=== PATIENT | male | born 1980 | race Caucasian/White ===

== ENCOUNTER 2019-03-27 23:16 | Emergency (ER) | payer OTHER ==
[2019-03-28] MEDS ORDERED: IBUPROFEN 800 MG TABLET PO ONE (00:44)
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
--- NOTE | 2019-03-28 00:56 | RADIOLOGY REPORT (SQ) ---
EXAM DESCRIPTION: XR FOREARM 2 VIEWS COMPLETED DATE/TME: 03/28/2019 00:00 CLINICAL HISTORY: 38 years, Male, bone pain COMPARISON: None. NUMBER OF VIEWS: Two TECHNIQUE: Two views of the right forearm LIMITATIONS: None. FINDINGS: No acute fracture or dislocation. No large soft tissue swelling. No radiopaque foreign body. IMPRESSION: No acute fracture or dislocation copyright 2010 [employer]- All Rights Reserved
--- NOTE | 2019-03-28 00:57 | RADIOLOGY REPORT (SQ) ---
EXAM DESCRIPTION: XR HAND 3 OR MORE VIEWS COMPLETED DATE/TME: 03/28/2019 00:00 CLINICAL HISTORY: 38 years, Male, bone pain COMPARISON: None. NUMBER OF VIEWS: Three TECHNIQUE: Three views of the right hand LIMITATIONS: None. FINDINGS: There is no acute fracture or dislocation. The joint spaces are preserved. No large soft tissue swelling. IMPRESSION: No acute fracture or dislocation copyright 2010 [employer]- All Rights Reserved
[2019-03-28 01:17] VITALS: BP 140/96
== END 2019-03-28 01:31 | disposition home or self-care (01) ==
LOC: ER 23:16
DX: S60.511A Abrasion of right hand, initial encounter (principal); M79.631 Pain in right forearm; Y00.XXXA Assault by blunt object, initial encounter; Z88.0 Allergy status to penicillin
CPT/HCPCS: 99283; 73090; 73130; L3908

== ENCOUNTER 2019-09-21 08:57 | Emergency (ER) | payer MEDICAID, OTHER ==
--- NOTE | 2019-09-21 10:24 | ER Document Report ---
HPI - HPI Time Seen by Provider: 09/21/19 10:13 Pain Level: 5 Context: Patient is a 38-year-old male who presents emergency department with a chief complaint of left lower dental pain. Patient reports that about 3 days ago his filling came out of his tooth. Patient reports since then he has had a throbbing and aching type sensation around this tooth and gumline. Patient denies fever. Patient reports the pain does radiate up into his left cheek and left ear. Patient reports he is taken Tylenol and ibuprofen without relief. Patient has not been to a dentist. Patient denies difficulty breathing or swallowing. - REPRODUCTIVE Reproductive: DENIES: : Past Medical History - General Information source: Patient - Social History Smoking Status: Current Every Day Smoker Chew tobacco use (# tins/day): No Frequency of alcohol use: Occasional Drug Abuse: None Lives with: Spouse/Significant other Family History: Reviewed & Not Pertinent Patient has suicidal ideation: No Patient has homicidal ideation: No - Past Medical History Cardiac Medical History: Reports: Hx Heart Attack Pulmonary Medical History: Reports: None EENT Medical History: Reports: None Neurological Medical History: Reports: None Endocrine Medical History: Reports: None Renal/ Medical History: Reports: None. Denies: Hx Peritoneal Dialysis Malignancy Medical History: Reports None GI Medical History: Reports: None Musculoskeletal Medical History: Reports None Skin Medical History: Reports None Psychiatric Medical History: Reports: None Traumatic Medical History: Reports: None Infectious Medical History: Reports: None Past Surgical History: Reports: Hx Orthopedic Surgery Vertical Provider Document - CONSTITUTIONAL Agree With Documented VS: Yes Exam Limitations: No Limitations General Appearance: No Apparent Distress - INFECTION CONTROL TRAVEL OUTSIDE OF THE [place] IN LAST 30 DAYS: No - HEENT HEENT: Atraumatic, Normocephalic, PERRLA Mouth Diagram: 1 - Pain to tooth with palpation, gum erythema and mild swelling with palpation of abscess. No drainage. No facial swelling. 2 - Teeth missing x3 3 - Teeth missing x3 - NECK Neck: Normal Inspection - RESPIRATORY Respiratory: Breath Sounds Normal, No Respiratory Distress - CARDIOVASCULAR Cardiovascular: Regular Rate, Regular Rhythm - GI/ABDOMEN Gastrointestinal: Abdomen Soft, Abdomen Non-Tender, Normal Bowel Sounds - MUSCULOSKELETAL/EXTREMETIES Musculoskeletal/Extremeties: FROM - NEURO Level of Consciousness: Awake, Alert, Appropriate - DERM Integumentary: Warm, Dry, No Rash Course - Re-evaluation Re-evalutation: 09/21/19 10:45 We will treat the patient for dental infection. Patient ultimately needs to follow-up with the dentist. I did give him referral to the [facility]. Also informed him and his significant other to call multiple dentist here in the area starting today to schedule a follow-up appointment. Patient verbalized understanding. - Vital Signs Vital signs: Temp Pulse Resp BP Pulse Ox 98.3 F 61 20 153/93 H 99 09/21/19 09:11 09/21/19 09:11 09/21/19 09:11 09/21/19 09:11 09/21/19 09:11 Discharge - Discharge Clinical Impression: Tooth ache, Dental infection Condition: Stable Disposition: HOME, SELF-CARE Instructions: Clindamycin ([facility]) Additional Instructions: *Today was seen in the emergency department for tooth pain. *Manage treat you for a dental infection. At this time there is no sign of an abscess formation around the gums. *Start the clindamycin as prescribed. We have given your first dose here in the emergency department. Take the 800 mg ibuprofen 3 times daily to help with inflammation. *You are also being prescribed Letha. Letha is a narcotic. Do not drive or operate heavy machinery while on this medication only take for severe pain. *Ultimately need to follow-up with a dentist. I will refer you to the [facility]. You can also call multiple dentist in the area to schedule a follow-up appointment, as the missing filling does need to be fixed. Dental Infection or Abscess You have an infection, perhaps an abscess (pus formation) of the gum around one of your teeth, which is probably decayed. If there is an abscess, it may drain on its own or it may need to be opened or lanced. Severe swelling or drainage around a tooth usually means a deep dental abscess which usually requires evaluation and treatment by a dentist or oral surgeon. Antibiotics may be prescribed while awaiting dental treatment. If you develop high fever with chills, worsening pain, or increasing swelling in the area, see a dentist or oral surgeon immediately or return to the Emergency Department immediately. Prescriptions: Clindamycin HCl [Cleocin 150 mg Capsule] 450 mg PO TID 7 Days capsule Ibuprofen [Motrin 800 mg Tablet] 800 mg PO Q8H PRN #30 tab PRN Reason: Hydrocodone/Acetaminophen [Letha 5-325 mg Tablet] 1 tab PO Q6 PRN #9 tablet PRN Reason: Referrals: [facility] [Provider Group] - Follow up as needed
[2019-09-21] MEDS ORDERED: CLINDAMYCIN HCL 150 MG CAPSULE PO ONE (10:29)
[2019-09-21] MEDS ORDERED: HYDROCODONE/ACETAMINOPHEN 5-325 MG TABLET PO ONE (10:29)
[2019-09-21 10:45] VITALS: BP 152/96
== END 2019-09-21 10:50 | disposition home or self-care (01) ==
LOC: ER 08:57
DX: K04.7 Periapical abscess without sinus (principal); K08.89 Other specified disorders of teeth and supporting structures; F17.200 Nicotine dependence, unspecified, uncomplicated
CPT/HCPCS: 99282

== ENCOUNTER 2019-10-01 08:05 | Emergency (ER) | payer MEDICAID, OTHER ==
[2019-10-01] MEDS ORDERED: NORMAL SALINE 1000 ML 1,000 ML IV ONE (09:04)
[2019-10-01] MEDS ORDERED: KETOROLAC TROMETHAMINE INJ/PF 30 MG/1 ML SDV IV ONE (09:05)
[2019-10-01] MEDS ORDERED: DEXAMETHASONE SOD PHOS INJ 10 MG/1 ML VIAL IV ONE (09:06)
[2019-10-01] MEDS ORDERED: CLINDAMYCIN 600 MG/D5W RTU 600 MG/50 ML RTUPB IV SCH (09:30)
[2019-10-01 09:54] LABS: ABSOLUTE BASOPHILS # (AUTO) 0.1 10^3/uL (0.0-0.2); ABSOLUTE EOSINOPHILS # (AUTO) 0.1 10^3/uL (0.0-0.6); ABSOLUTE LYMPHOCYTES (AUTO) 1.3 10^3/uL (0.5-4.7); ABSOLUTE MONOCYTES (AUTO) 0.8 10^3/uL (0.1-1.4); ABSOLUTE NEUT (AUTO) 7.7 10^3/uL (1.7-8.2); EOSINOPHILS % (AUTO) 1.4 % (0-6); HEMOGLOBIN 16.2 g/dL (13.5-17.0); MEAN CORPUSCULAR HEMOGLOBIN 30.6 pg (27.0-33.4); MEAN CORPUSCULAR HGB CONC 34.6 g/dL (32.0-36.0); MEAN CORPUSCULAR VOLUME 89 fl (80-97); MONOCYTES % (AUTO) 8.1 % (3-13); PLATELET COUNT 369 10^3/uL (150-450); RED CELL DISTRIBUTION WIDTH 14.1 % (11.5-14.0); SEGMENTED NEUTROPHILS % (AUTO) 76.5 % (42-78); TOTAL CELLS COUNTED % (AUTO) 100 %
[2019-10-01 10:09] LABS: ALBUMIN 4.9 g/dL (3.5-5.0); ALKALINE PHOSPHATASE 85 U/L (38-126); ANION GAP 9 (5-19); ASPARTATE AMINO TRANSFERASE 31 U/L (17-59); BILIRUBIN,DIRECT 0.2 mg/dL (0.0-0.4); BILIRUBIN,TOTAL 0.6 mg/dL (0.2-1.3); BLOOD UREA NITROGEN 8 mg/dL (7-20); CALCIUM 9.6 mg/dL (8.4-10.2); CARBON DIOXIDE 30 mmol/L (22-30); CHLORIDE 101 mmol/L (98-107); GLUCOSE 105 mg/dL (75-110); POTASSIUM 4.7 mmol/L (3.6-5.0); TOTAL PROTEIN 8.1 g/dL (6.3-8.2)
--- NOTE | 2019-10-01 10:57 | RADIOLOGY REPORT (SQ) ---
EXAM DESCRIPTION: CT FACIAL AREA WITH COMPLETED DATE/TIME: 10/01/2019 10:39 am REASON FOR STUDY: Left facial swelling COMPARISON: None. TECHNIQUE: Post contrast images through the facial bones and orbits windowed for bone and soft tissu e. Additional coronal and sagittal reconstructed images reviewed. All images stored on PACS. All CT scanners at this facility use dose modulation, iterative reconstruction, and/or weight based d osing when appropriate to reduce radiation dose to as low as reasonably achievable (ALARA). [facility]: Dose Right [facility]: CareDose [facility]: Dose Right [facility]: Teradose 4D [facility]: [employer] CONTRAST TYPE AND DOSE: contrast/concentration: Isovue 350.00 mg/ml; Total Contrast Delivered: 50.0 ml; Total Saline Delivered: 50.0 ml RENAL FUNCTION: None required. The patient is less than 50 years old. RADIATION DOSE: CT Rad equipment meets quality standard of care and radiation dose reduction techniq ues were employed. CTDIvol: 30.4 mGy. DLP: 680 mGy-cm. . LIMITATIONS: None. FINDINGS: FACIAL BONES: No fracture or bone lesion. ORBITS: Intact. No fracture. Symmetric intact globes and retroorbital soft tissues. PARANASAL SINUSES: Clear. No significant mucosal thickening, mass or fluid. No nasal polyps. Maxilla ry sinus outlets are patent. SOFT TISSUES: There is generalized subcutaneous edema along the left jaw all. There is no focal soft tissue abscess. INFERIOR BRAIN: Limited view. No acute findings. OTHER: Generalize multiple lymph nodes in both cervical chains left greater than right. IMPRESSION: Subcutaneous inflammatory changes along the left jaw all but without focal soft tissue a bscess. Reactive cervical adenopathy. TECHNICAL DOCUMENTATION: JOB ID: [id number] Quality ID # [id number]: Final reports with documentation of one or more dose reduction techniques (e.g., Au tomated exposure control, adjustment of the mA and/or kV according to patient size, use of iterative reconstruction technique) 2010 [employer]- All Rights Reserved Reading location - IP/workstation name: [email or web address]
[2019-10-01 12:31] VITALS: BP 131/76
--- NOTE | 2019-10-01 12:36 | ER Document Report ---
ED General - General Chief Complaint: Toothache Stated Complaint: TOOTH PAIN/FACIAL SWELLING Time Seen by Provider: 10/01/19 08:45 Mode of Arrival: Ambulatory Information source: Patient Notes: 38-year-old man presents to the emergency department with a complaint of left jaw swelling and pain. Apparently he has had dental related pain and swelling seen in the emergency department and treated with clindamycin. He went to the dentist according to the patient was told to return when the swelling is gone down. He states that he is completed the seven-day course of clindamycin and now the swelling is worse and the pain is more severe. He denies any difficulty with swallowing and his airway is intact. TRAVEL OUTSIDE OF THE [place] IN LAST 30 DAYS: No - Related Data Allergies/Adverse Reactions: Penicillins Allergy (Verified 10/01/19 08:15) Past Medical History - Social History Smoking Status: Current Every Day Smoker Chew tobacco use (# tins/day): No Frequency of alcohol use: None Drug Abuse: None Family History: Reviewed & Not Pertinent Patient has suicidal ideation: No Patient has homicidal ideation: No - Past Medical History Cardiac Medical History: Reports: Hx Heart Attack Renal/ Medical History: Denies: Hx Peritoneal Dialysis Past Surgical History: Reports: Hx Orthopedic Surgery Review of Systems - Review of Systems Notes: Constitutional: Negative for fever. HENT: + Left jaw swelling, + dental pain. Negative for sore throat. Eyes: Negative for visual changes. Cardiovascular: Negative for chest pain. Respiratory: Negative for shortness of breath. Gastrointestinal: Negative for abdominal pain, vomiting or diarrhea. Genitourinary: Negative for dysuria. Musculoskeletal: Negative for back pain. Skin: Negative for rash. Neurological: Negative for headaches, weakness or numbness. 10 point ROS negative except as marked above and in HPI. Physical Exam - Vital signs Vitals: Temp Pulse Resp BP Pulse Ox 98.6 F 75 20 138/86 H 100 10/01/19 08:09 10/01/19 08:09 10/01/19 08:09 10/01/19 08:09 10/01/19 08:09 - Notes Notes: PHYSICAL EXAMINATION: Physical Exam: General: Well-nourished well-developed 88-year-old man marked distress secondary to pain HEENT: NC/AT, pupils equal round and reactive to light, MM moist,nares clear, oropharynx + swelling along the left lateral gumline with marked tenderness to touch., airway patent Neck: supple, no adenopathy, no masses. Good range of motion Lungs: clear, no wheezing, no rales no rhonchi CVS: Regular rate and rhythm no murmur gallop or rub Abdomen: Soft, active, nontender, no masses, no hepatosplenomegaly Ext: No edema, clubbing or cyanosis. Neuro: Alert and responsive, moving all 4 extremities on command, cranial nerves intact, no focal findings Skin: Intact no open lesions, no rash PSYCH: Normal mood, normal affect. Course - Re-evaluation Re-evalutation: 10/01/19 12:33 Patient given IV Toradol, clindamycin, Decadron and significant improvement of symptoms. CT of the face reveals a soft tissue swelling subcutaneous inflammation along the left jaw without a focal abscess. Explained this to the patient and explained that we will discharge him on a short course of steroid, or Toradol and erythromycin. - Vital Signs Vital signs: Temp Pulse Resp BP Pulse Ox 98.6 F 75 20 138/86 H 100 10/01/19 08:09 10/01/19 08:09 10/01/19 08:09 10/01/19 08:09 10/01/19 08:09 - Laboratory Result Diagrams: 10/01/19 09:25 10/01/19 09:25 Laboratory results interpreted by me: 10/01/19 09:25 RDW 14.1 H 10/01/19 12:36 I have reviewed laboratory data and used this information for the treatment decisions regarding the patient. - Diagnostic Test Radiology reviewed: Image reviewed, Reports reviewed - CT facial: Subcutaneous inflammation with changes along the left jaw without focal soft tissues abscess Discharge - Discharge Clinical Impression: Dental infection, Pain, dental, Jaw swelling Condition: Good Disposition: HOME, SELF-CARE Instructions: Toothache ([facility]) Additional Instructions: Please use [employer] dentist formulated oral rinse for gum disease. Begin a twice a day rinse. Please take the erythromycin as prescribed, use the Toradol for pain and follow-up with dentist as soon as possible. HOME CARE INSTRUCTIONS & INFORMATION: Thank you for choosing us for your medical needs. We hope you're satisfied with the care you received. After you leave, you must properly care for your problem and, at the same time, observe its progress. Any condition can change. Some illnesses can change rapidly over hours or days. If your condition worsens, return to the Emergency Department or see your physician promptly. ABOUT YOUR X-RAYS AND EKG'S: If you had an EKG or X-rays taken, they have been read by the Emergency Physician. The X-rays and EKG's will also be read by a Radiologist or Director Of Content Marketing within 24 hours. If discrepancies are noted, you will be notified by telephone. Please be certain the ED has a correct telephone number & address where you can be reached. Also, realize that some fractures or abnormalities do not show up on initial X-rays. If your symptoms continue, see your physician. ABOUT YOUR LABORATORY TEST: If you had laboratory tests, the results have been reviewed by the Emergency Physician. Some test results (for example cultures) may not be available for several days. You will be contacted if any test result shows you need additional treatment. Please be certain the ED has a correct telephone number and address where you can be reached. ABOUT YOUR MEDICATIONS: You will receive instructions on how to take your medicine on the prescription label you receive. Additional information may be provided by the Pharmacy. If you have questions afterwards, call the ED for clarification or further instructions. Some prescribed medications may cause drowsiness. Do not perform tasks such as driving a car or operating machinery without consulting your Pharmacist. If you feel you need a refill of pain medication, your condition will need re-evaluation. Please do not call for a refill of any medication. ABOUT YOUR SIGNATURE: Signature of this document acknowledges to followin. Understanding that you received emergency treatment and that you may be released before al medical problems are known or treated. Please be certain the ED has a correct phone number & address where you can be reached. 2. Acknowledgement that you will arrange for follow-up care as recommended. 3. Authorization for the Emergency Physician to provide information to your follow-up Physician in order to maximize your care. AT ANY TIME, IF YOUR SYMPTOMS CHANGE SIGNIFICANTLY OR WORSEN OR YOU DEVELOP NEW SYMPTOMS, RETURN TO THE EMERGENCY DEPARTMENT IMMEDIATELY FOR RE-EVALUATION. OUR GOAL IS TO PROVIDE EXCELLENT MEDICAL CARE! WE HOPE THAT WE HAVE MET YOUR EXPECTATIONS DURING YOUR EMERGENCY DEPARTMENT VISIT AND THAT YOU FEEL YOU HAVE RECEIVED EXCELLENT CARE! Prescriptions: Prednisone [Deltasone 20 mg Tablet] 1 tab PO BID 3 Days #6 tablet Erythromycin Base [Erythromycin] 500 mg PO TID #30 tablet. Ketorolac Tromethamine [Toradol 10 mg Tablet] 10 mg PO Q6 PRN #12 tablet PRN Reason: For Pain Scale 3-4
== END 2019-10-01 13:01 | disposition home or self-care (01) ==
LOC: ER 08:05
DX: K04.7 Periapical abscess without sinus (principal); K08.89 Other specified disorders of teeth and supporting structures; F17.200 Nicotine dependence, unspecified, uncomplicated; Z88.0 Allergy status to penicillin
CPT/HCPCS: 99283; 96375; 96365; 36415; 85025; 80053; 70487; J1885; J7030; J1100

== ENCOUNTER 2019-10-03 18:15 | Emergency (ER) | payer MEDICAID, OTHER ==
[2019-10-03] MEDS ORDERED: OXYCODONE-ACETAMINOPHEN 5-325 MG TABLET PO ONE (18:43)
--- NOTE | 2019-10-03 18:45 | ER Document Report ---
ED Oral Problem - General Chief Complaint: Sore Throat Stated Complaint: SORE THROAT,EAR PAIN,HEADACHE Time Seen by Provider: 10/03/19 18:38 Mode of Arrival: Ambulatory Information source: Patient TRAVEL OUTSIDE OF THE [place] IN LAST 30 DAYS: No - Related Data Allergies/Adverse Reactions: Penicillins Allergy (Verified 10/03/19 18:35) Past Medical History - Social History Family History: Reviewed & Not Pertinent - Past Medical History Cardiac Medical History: Reports: Hx Heart Attack Renal/ Medical History: Denies: Hx Peritoneal Dialysis Past Surgical History: Reports: Hx Orthopedic Surgery Physical Exam - Vital signs Vitals: Temp Pulse Resp BP Pulse Ox 100.2 F 77 16 158/100 H 99 10/03/19 18:21 10/03/19 18:21 10/03/19 18:21 10/03/19 18:21 10/03/19 18:21 Course - Vital Signs Vital signs: Temp Pulse Resp BP Pulse Ox 100.2 F 77 16 158/100 H 99 10/03/19 18:21 10/03/19 18:21 10/03/19 18:21 10/03/19 18:21 10/03/19 18:21
--- NOTE | 2019-10-03 18:56 | ER Document Report ---
ED Medical Screen (RME) - General Chief Complaint: Facial Swelling Stated Complaint: SORE THROAT,EAR PAIN,HEADACHE Time Seen by Provider: 10/03/19 18:38 Mode of Arrival: Ambulatory Information source: Patient Notes: 38-year-old male presented to ED for dental abscess to the left lower jaw. He states this is his third visit for this dental pain and is not getting better and is getting worse. He does have a large dental abscess to the left lower jaw. I have pierced it with an 18-gauge needle and a lot of pus has returned. I have spoken with another provider who will I&D the abscess to get him more relief. I have treated him with 1 Percocet while in the pit area. He is alert oriented respirations regular nonlabored speaking in full sentences. He does have a prescription for clindamycin. I have greeted and performed a rapid initial assessment of this patient. A comprehensive ED assessment and evaluation of the patient, analysis of test results and completion of medical decision making process will be conducted by an additional ED providers. TRAVEL OUTSIDE OF THE [place] IN LAST 30 DAYS: No - Related Data Allergies/Adverse Reactions: Penicillins Allergy (Verified 10/03/19 18:35) Past Medical History - Social History Chew tobacco use (# tins/day): No Drug Abuse: None - Past Medical History Cardiac Medical History: Reports: Hx Heart Attack Renal/ Medical History: Denies: Hx Peritoneal Dialysis Past Surgical History: Reports: Hx Orthopedic Surgery Physical Exam - Vital signs Vitals: Temp Pulse Resp BP Pulse Ox 100.2 F 77 16 158/100 H 99 10/03/19 18:21 10/03/19 18:21 10/03/19 18:21 10/03/19 18:21 10/03/19 18:21 Course - Vital Signs Vital signs: Temp Pulse Resp BP Pulse Ox 100.2 F 77 16 158/100 H 99 10/03/19 18:21 10/03/19 18:21 10/03/19 18:21 10/03/19 18:21 10/03/19 18:21
[2019-10-03] MEDS ORDERED: HYDROCODONE/ACETAMINOPHEN 5-325 MG (6 TAB/ER DISP) PO PRN (19:30)
[2019-10-03] MEDS ORDERED: HYDROMORPHONE HCL INJ/PF 2 MG/ML AMPULE IM ONE (19:45)
[2019-10-03] MEDS ORDERED: LIDOCAINE 2% VISCOUS SOLN 15 ML UDCUP PO ONE (19:48)
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
[2019-10-03 20:58] VITALS: BP 153/90
== END 2019-10-03 20:57 | disposition home or self-care (01) ==
LOC: ER 18:15
DX: K04.7 Periapical abscess without sinus (principal); R68.84 Jaw pain; F17.200 Nicotine dependence, unspecified, uncomplicated; I25.2 Old myocardial infarction
CPT/HCPCS: 99283; 96372; 41800; J3490; J1170

== ENCOUNTER 2020-07-21 15:56 | Emergency (ER) | payer SELFPAY ==
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
[2020-07-21 16:51] VITALS: BP 120/82
[2020-07-21] MEDS ORDERED: HYDROCODONE/ACETAMINOPHEN 5-325 MG TABLET PO ONE (16:52)
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
[2020-07-21] MEDS ORDERED: HYDROCODONE/ACETAMINOPHEN 5-325 MG (6 TAB/ER DISP) PO PRN (19:25)
== END 2020-07-21 19:32 | disposition home or self-care (01) ==
LOC: ER 15:56
DX: S50.12XA Contusion of left forearm, initial encounter (principal); S02.40FA Zygomatic fracture, left side, initial encounter for closed fracture; R51.9 Headache, unspecified; M79.602 Pain in left arm; Y04.2XXA Assault by strike against or bumped into by another person, initial encounter; Y92.481 Parking lot as the place of occurrence of the external cause; F17.210 Nicotine dependence, cigarettes, uncomplicated; I25.2 Old myocardial infarction
CPT/HCPCS: 70450; 70486; 99284